=== PATIENT | male | born 1950 | race Caucasian/White ===

== ENCOUNTER 2021-04-04 15:08 | Emergency (ER) | payer MEDICARE, OTHER ==
--- NOTE | 2021-04-04 15:26 | ED Physician Documentation ---
PD HPI CHEST PAIN - Stated complaint Stated Complaint: SOA,RACING HEART - Chief complaint Chief Complaint: Cardiac - History obtained from History obtained from: Patient - Additional information Additional information: Patient comes emergency department for chief complaint of racing heart for the last couple of months on and off. Patient states that he has not really had chest pain, but it becomes very uncomfortable to feel his heart pounding and racing. He states that sometimes if he lays down, his heart will calm down, but that after while being up and about, the palpitations come back. The patient has a history of a dysrhythmia the name of which he does not remember, for which he had an ablation 2 years ago. He has since been on metoprolol, and was not having much trouble with palpitations until couple months ago. The patient states he sees a front end assistant at [facility], and actually has an appointment tomorrow at 1:00. Patient denies any current shortness of breath, though he does sometimes feel just tired and dyspneic when trying to engage in physical activity. He states this improves when his palpitations are not so bad. Review of Systems Ten Systems: 10 systems reviewed and negative Constitutional: reports: Reviewed and negative Eyes: reports: Reviewed and negative Ears: reports: Reviewed and negative Nose: reports: Reviewed and negative Throat: reports: Reviewed and negative Cardiac: reports: Palpitations Respiratory: reports: Dyspnea GI: reports: Reviewed and negative : reports: Reviewed and negative Skin: reports: Reviewed and negative Musculoskeletal: reports: Reviewed and negative Neurologic: reports: Reviewed and negative Psychiatric: reports: Reviewed and negative Endocrine: reports: Reviewed and negative Immunocompromised: reports: Reviewed and negative PD PAST MEDICAL HISTORY - Present Medications Home Medications: Ambulatory Orders Medication Instructions Recorded Confirmed Atorvastatin Calcium [Lipitor] 80 mg PO HS 04/04/21 04/04/21 Lisinopril [Zestril] 10 mg PO DAILY 04/04/21 04/04/21 Metoprolol Succinate [Toprol Xl] 25 mg PO DAILY 04/04/21 04/04/21 allopurinoL [Zyloprim] 100 mg PO DAILY 04/04/21 04/04/21 traZODone [Desyrel] 50 - 100 mg PO HS PRN 04/04/21 04/04/21 - Allergies Allergies/Adverse Reactions: Allergies Allergy/AdvReac Type Severity Reaction Status Date / Time No Known Drug Allergies Allergy Verified 04/04/21 15:13 PD ED PE NORMAL - Vitals Vital signs reviewed: Yes - General General: Alert and oriented X 3, No acute distress, Well developed/nourished - HEENT HEENT: Atraumatic, PERRL, EOMI, Moist mucous membranes - Neck Neck: Supple, no meningeal sign - Cardiac Cardiac: No murmur, Other (Irregular rate and rhythm.) - Respiratory Respiratory: No respiratory distress, Clear bilaterally - Abdomen Abdomen: Soft, Non tender, Non distended - Derm Derm: Normal color, Warm and dry, No rash - Extremities Extremities: No deformity, No edema, No calf tenderness / cord - Neuro Neuro: Alert and oriented X 3, v block saw operator 2-12 intact, Normal speech - Psych Psych: Normal mood, Normal affect Results - Vitals Vitals: Oxygen O2 Source Room air - EKG (time done) 1517 Rate: Rate (enter#) (123) Rhythm: Atrial fibrillation [place]: Normal Intervals: RBBB Ischemia: Normal ST segments, Non specific changes Compare to prior EKG: Old EKG unavailable - Labs Labs: Laboratory Tests 04/04/21 04/04/21 04/04/21 15:35 15:35 15:35 WBC 8.8 RBC 4.44 L Hgb 14.6 Hct 42.8 MCV 96.4 H MCH 32.9 H MCHC 34.1 RDW 12.1 Plt Count 230 MPV 9.8 Neut # (Auto) 5.2 Lymph # (Auto) 2.3 [place] # (Auto) 0.8 Eos # (Auto) 0.5 Baso # (Auto) 0.1 Absolute Nucleated RBC 0.00 Nucleated RBC % 0.0 Sodium 136 Potassium 4.3 Chloride 102 Carbon Dioxide 23 Anion Gap 11.0 BUN 23 H Creatinine 1.2 Estimated GFR (MDRD) 60 L Glucose 107 H Calcium 9.8 Total Bilirubin 0.8 AST 28 ALT 28 Alkaline Phosphatase 68 Troponin I High Sens 9.2 Total Protein 8.0 Albumin 4.5 Globulin 3.5 Albumin/Globulin Ratio 1.3 Lipase 45 - Rads (name of study) CXR Radiology: Final report received, EMP read indepedently, See rad report (nad) PD MEDICAL DECISION MAKING - ED course Complexity details: reviewed results, re-evaluated patient, considered differential, d/w patient, d/w family ED course: PT was found to be in atrial fibrillation with mild RVR. Since he was already on metoprolol, I gave him an IV dose of the same, which did improve his HR to normal. Pt is scheduled to see his front end assistant tomorrow. I d/w him that for now, we will double his metoprolol from 25mg daily to 50 mg daily. However, I have emphasized to him that he should discuss this with cardiology tomorrow to be sure of whether they want him to continue this long-term, or whether they have a different plan. Pt is stable for d/c home. Labs are unremarkable. Departure - Departure Disposition: Home, Self Care Clinical Impression: Atrial fibrillation with rapid ventricular response Condition: Stable Instructions: ED Afib Comments: Your labs look good today. You are in an irregular heart rhythm called atrial fibrillation, which is most likely the rhythm you had the ablation for 2 years ago. Unfortunately, it seems your atrial fibrillation has recurred. The medication that you are already on, metoprolol, is helpful for this rhythm in controlling the rate. However, since your rate has been too fast on the dose you are already on, we will increase the dose temporarily from 25 mg to 50 mg each morning. This means that you should take 2 pills instead of 1 pill tomorrow morning. Please continue your plans to follow-up with your front end assistant tomorrow and please be sure to discuss a long-term plan for your management of your atrial fibrillation with him. If you develop severe chest pain or shortness of breath overnight, please return to the emergency department immediately. Discharge Date/Time: 04/04/21 16:58
--- NOTE | 2021-04-04 15:37 | XRAY Report ---
PROCEDURE: Chest 1 View X-Ray INDICATIONS: Chest pain TECHNIQUE: One view of the chest was acquired. COMPARISON: None FINDINGS: Surgical changes and devices: Median sternotomy changes. Lungs and pleura: No pleural effusions or pneumothorax. Lungs are clear. Mediastinum: Mediastinal contours appear normal. Heart size is normal. Bones and chest wall: No suspicious bony lesions. Overlying soft tissues appear unremarkable. IMPRESSION: No acute cardiopulmonary process demonstrated radiographically. Reviewed by: Dustin Pimentel MD on 04/04/2021 3:36 PM PDT Approved by: Dustin Pimentel MD on 04/04/2021 3:36 PM PDT Station ID: [id number]
[2021-04-04 15:39] LABS: BASOPHILS # (AUTO) 0.1 10^3/uL (0.0-0.1); BASOPHILS % (AUTO) 0.6 %; EOSINOPHILS # (AUTO) 0.5 10^3/uL (0.0-0.7); EOSINOPHILS % (AUTO) 5.7 %; HCT - HEMATOCRIT 42.8 % (42.0-52.0); HGB - HEMOGLOBIN 14.6 g/dL (14.0-18.0); LYMPHOCYTES # (AUTO) 2.3 10^3/uL (1.5-3.5); MEAN CORPUSCULAR HEMOGLOBIN 32.9 pg (27.0-31.0); MEAN CORPUSCULAR HGB CONC 34.1 g/dL (32.0-36.0); MEAN CORPUSCULAR VOLUME 96.4 fL (80.0-94.0); MEAN PLATELET VOLUME 9.8 fL (7.4-11.4); MONOCYTES # (AUTO) 0.8 10^3/uL (0.0-1.0); MONOCYTES % (AUTO) 8.9 %; NEUTROPHILS # (AUTO) 5.2 10^3/uL (1.5-6.6); NEUTROPHILS % (AUTO) 58.6 %; PLT - PLATELET COUNT 230 10^3/uL (130-450); RED BLOOD COUNT 4.44 10^6/uL (4.70-6.10); RED CELL DISTRIBUTION WIDTH 12.1 % (12.0-15.0); WHITE BLOOD COUNT 8.8 x10^3/uL (4.8-10.8)
[2021-04-04] MEDS ORDERED: METOPROLOL 5 MG/5 ML VIAL IVP STA (15:39)
[2021-04-04 15:57] LABS: ALBUMIN 4.5 g/dL (3.2-5.5); ALBUMIN/GLOBULIN RATIO 1.3 (1.0-2.2); BILIRUBIN,TOTAL 0.8 mg/dL (0.2-1.0); CALCIUM 9.8 mg/dL (8.5-10.3); CREATININE 1.2 mg/dL (0.6-1.2); POTASSIUM 4.3 mmol/L (3.5-5.0)
[2021-04-04] MEDS ORDERED: METOPROLOL SUCCINATE 25 MG TABLET PO STA (16:09)
[2021-04-04 16:56] VITALS: BP 133/82
[2021-04-05] MEDS ORDERED: METOPROLOL SUCCINATE 25 MG TABLET PO SCH (09:00)
== END 2021-04-04 16:58 | disposition home or self-care (01) ==
LOC: ED 15:08
DX: I48.91 Unspecified atrial fibrillation (principal); I45.10 Unspecified right bundle-branch block
CPT/HCPCS: 36415; 71045; 80053; 83690; 84484; 85025; 93005; 96374; 99284; A9270